=== PATIENT | male | born 1930 ===

== ENCOUNTER 2017-08-23 14:49 | Emergency (ER) | payer MEDICAID, MEDICARE ==
[2017-08-23 14:56] VITALS: BP 178/88; PULSE 80; RESP 16; TEMP 98; O2SAT 96
--- NOTE | 2017-08-23 16:22 | ED PDOC ---
HPI: Male Pain Time Seen by Provider: 08/23/17 15:29 Chief Complaint (Nursing): Male Genitourinary Chief Complaint (Provider): urinary freq History Per: Patient History/Exam Limitations: no limitations Additional Complaint(s): 87yo M in Ed with daughter for eval of frequent urination over 10 years. denies hematuira abdominal pain back pain nausea vomiting fever chills penile drainage numbness/tingling in LE. Pt states he refuses to see his doctor because he doesn't like him. Pt dx with ?prostate inflammation, but pt unsure. last pmd visit 2 years ago. no other complaints. Past Medical History Reviewed: Historical Data, Nursing Documentation, Vital Signs Vital Signs: Last Vital Signs Temp 98.0 F 08/23/17 14:52 Pulse 80 08/23/17 14:52 Resp 16 08/23/17 14:52 BP 178/88 H 08/23/17 14:52 Pulse Ox 96 08/23/17 14:52 - Medical History PMH: HTN - Family History Family History: States: No Known Family Hx - Allergies Allergies/Adverse Reactions: Allergies Allergy/AdvReac Type Severity Reaction Status Date / Time No Known Allergies Allergy Verified 08/23/17 14:52 Review of Systems ROS Statement: Except As Marked, All Systems Reviewed And Found Negative Constitutional: Negative for: Fever, Chills, Malaise Gastrointestinal: Negative for: Nausea, Vomiting, Abdominal Pain, Diarrhea, Constipation Genitourinary Male: Positive for: Frequency. Negative for: Dysuria, Incontinence, Hematuria, Penile Discharge, Scrotal Pain, Rash, Penile Pain Musculoskeletal: Negative for: Back Pain Physical Exam - Reviewed Nursing Documentation Reviewed: Yes Vital Signs Reviewed: Yes - Physical Exam Appears: Positive for: Well, No Acute Distress Head Exam: Positive for: ATRAUMATIC, NORMAL INSPECTION, NORMOCEPHALIC Skin: Positive for: Normal Color, Warm, DRY Eye Exam: Positive for: Normal appearance, EOMI, PERRL Cardiovascular/Chest: Positive for: Regular Rate, Rhythm Respiratory: Positive for: CNT, Normal Breath Sounds Gastrointestinal/Abdominal: Positive for: Normal Exam, Bowel Sounds, Soft. Negative for: Tenderness Back: Positive for: Normal Inspection. Negative for: L CVA Tenderness, R CVA Tenderness Extremity: Positive for: Normal ROM Neurologic/Psych: Positive for: Alert, Oriented - Laboratory Results Urine dip results: Negative for: Leukocyte Esterase, Blood, Nitrate, Ketones, Glucose, Bilirubin, Protein - ECG O2 Sat by Pulse Oximetry: 96 Medical Decision Making Medical Decision Making: PT nontoxic appearing in ER. UDIP unremarkable. normal PE. appointment made for clinic with MD Pamela at 8:30am 09/13/17 Disposition - Clinical Impression Clinical Impression: Urinary frequency - Patient ED Disposition Is Patient to be Admitted: No Counseled Patient/Family Regarding: Need For Followup - Disposition Referrals: [facility] [Outside] Disposition: Routine/Home Disposition Time: 16:35 Condition: STABLE Additional Instructions: You have an appointment at the [facility] (address is listed above) on: 09/13/17 at 8:30am with Dr. Santiago. Instructions: Benign Prostatic Hypertrophy (ED) Print Language: SETSWANA
== END 2017-08-23 16:52 | disposition home or self-care (01) ==
LOC: H.ER 14:49
DX: R39.15 Urgency of urination (principal); N41.9 Inflammatory disease of prostate, unspecified; I10 Essential (primary) hypertension

== ENCOUNTER 2017-11-11 16:07 | Emergency (ER) | payer MEDICAID, MEDICARE ==
[2017-11-11 16:15] VITALS: TEMP 97.4
--- NOTE | 2017-11-11 16:34 | ED PDOC ---
HPI: Altered Mental Status Time Seen by Provider: 11/11/17 16:13 Chief Complaint (Nursing): Altered Mental Status Chief Complaint (Provider): Altered Mental Status History Per: Patient History/Exam Limitations: None Current Symptoms Are (Timing): Still Present Additional Complaint(s): 87 year old male presents to the emergency department via ambulance after they found him wandering the streets prior to arrival. Patient seems to be confused. States he finished visiting his in a hospital in [facility] when he left and crossed the street until he came across a big river. When asked where he lives, patient mentions a address in [facility] but is aware that he is currently in [place], [place]. Denies fever, chills, chest pain, shortness of breath , chest pain, and numbness. Past Medical History Reviewed: Historical Data, Nursing Documentation, Vital Signs Vital Signs: Last Vital Signs Temp 97.4 F L 11/11/17 16:11 Pulse 78 11/11/17 16:11 Resp 20 11/11/17 16:11 BP Pulse Ox 98 11/11/17 16:11 - Medical History PMH: Dementia, HTN - Surgical History Surgical History: No Surg Hx - Family History Family History: States: Unknown Family Hx - Social History Current smoker - smoking cessation education provided: No Alcohol: None Drugs: Denies - Allergies Allergies/Adverse Reactions: Allergies Allergy/AdvReac Type Severity Reaction Status Date / Time No Known Allergies Allergy Verified 11/11/17 16:15 Review of Systems ROS Statement: Except As Marked, All Systems Reviewed And Found Negative (As per HPI, otherwise negative) Constitutional: Negative for: Fever, Chills Cardiovascular: Negative for: Chest Pain Respiratory: Negative for: Shortness of Breath Neurological: Positive for: Confusion. Negative for: Numbness (tingling) Physical Exam - Reviewed Nursing Documentation Reviewed: Yes Vital Signs Reviewed: Yes - Physical Exam Appears: Positive for: No Acute Distress Head Exam: Positive for: ATRAUMATIC, NORMAL INSPECTION Skin: Positive for: Normal Color, Warm, Dry Eye Exam: Positive for: Normal appearance, EOMI, PERRL ENT: Positive for: Normal ENT Inspection. Negative for: Pharyngeal Erythema Cardiovascular/Chest: Positive for: Regular Rate, Rhythm. Negative for: Murmur Respiratory: Positive for: Normal Breath Sounds. Negative for: Accessory Muscle Use, Respiratory Distress Gastrointestinal/Abdominal: Positive for: Normal Exam, Soft. Negative for: Tenderness Extremity: Positive for: Normal ROM. Negative for: Pedal Edema Neurologic/Psych: Positive for: Alert. Negative for: Oriented, Motor/Sensory Deficits, Aphasia - ECG O2 Sat by Pulse Oximetry: 98 (RA) Pulse Ox Interpretation: Normal - Progress ED Course And Treament: 1700: Stable. Alert. Pain free. Spoke with sister. Pt. was with her in hospital and they were visiting another sister. Sister went to get coffee and pt. wandered off. Pt. has hx of wandering. Pt. with no fall. Sister willing to take pt. home. Medical Decision Making Medical Decision Making: Time: 1630 Initial Impression: Possible altered mental status Initial Plan: -- Spoke to patient's sister who stated will be here soon and confirmed that patient has memory issues. Scribe Attestation: Documented by Aliya Taylor, acting as a scribe for Marco A Coy MD. Provider Scribe Attestation: All medical record entries made by the Scribe were at my direction and personally dictated by me. I have reviewed the chart and agree that the record accurately reflects my personal performance of the history, physical exam, medical decision making, and the department course for this patient. I have also personally directed, reviewed, and agree with the discharge instructions and disposition. Disposition - Clinical Impression Clinical Impression: Dementia - Patient ED Disposition Is Patient to be Admitted: No Counseled Patient/Family Regarding: Diagnosis, Need For Followup - Disposition Referrals: [facility] [Outside] - 11/13/17 Disposition: Routine/Home Disposition Time: 17:02 Condition: STABLE Additional Instructions: Return if not better in 3 days. Instructions: Dementia (Including Alzheimer Disease) Print Language: NIGERIAN
[2017-11-11 17:09] VITALS: BP 157/52; PULSE 86; RESP 18; O2SAT 99
== END 2017-11-11 17:17 | disposition home or self-care (01) ==
LOC: H.ER 16:07
DX: F03.90 Unspecified dementia, unspecified severity, without behavioral disturbance, psychotic disturbance, mood disturbance, and anxiety (principal); I10 Essential (primary) hypertension

== ENCOUNTER 2018-08-03 01:57 | Observation (INO) | payer MEDICAID, MEDICARE, OTHER ==
[2018-08-03 02:08] VITALS: BMI 27.4
[2018-08-03 02:55] LABS: BASO # 0.1 K/uL (0.0-0.2); EOS # 0.1 K/uL (0.0-0.7); EOS % 1.8 % (0.0-4.0); HEMOGLOBIN 12.6 g/dL (12.0-18.0); LYMPH # 1.6 K/uL (1.0-4.3); LYMPH % 20.9 % (20.0-40.0); MEAN CORPUSCULAR HGB CONC 33.8 g/dL (33.0-37.0); MEAN PLATELET VOLUME 9.7 fl (7.2-11.7); MONO # 0.7 K/uL (0.0-0.8); MONO % 8.8 % (0.0-10.0); NEUT # 5.1 K/uL (1.8-7.0); NEUT % 67.5 % (50.0-75.0); RBC 4.49 Mil/uL (4.40-5.90); RED CELL DISTRIBUTION WIDTH 14.4 % (11.5-14.5); WHITE BLOOD COUNT 7.5 K/uL (4.8-10.8)
[2018-08-03 03:06] LABS: ALB/GLOB RATIO 1.2 (1.0-2.1); ALBUMIN 3.7 g/dL (3.5-5.0); ALT/SGPT 25 U/L (21-72); AST/SGOT 26 U/L (17-59); BLOOD UREA NITROGEN 17 mg/dl (9-20); CALCIUM 9.1 mg/dL (8.4-10.2); GFR NON-AFRICAN AMERICAN > 60
--- NOTE | 2018-08-03 03:43 | ED PDOC ---
Syncope/Near Syncope/Dizziness Time Seen by Provider: 08/03/18 02:06 Chief Complaint (Nursing): Syncope Chief Complaint (Provider): Syncope History Per: Family (Daughter) History/Exam Limitations: no limitations Additional Complaint(s): 88 y/o male with history of Alzheimer and hypertension brought in by EMS for evaluation of syncopal episodes onset [employer]. Daughter had witnessed the syncopal episode and some seizure type of activity in which patient spoke words while shaking. She reports the episode lasted for 15 minutes and on arrival of EMS, patient was walking and talking normally. Daughter also reports patient's blood pressure dropped base on him becoming pale. Patient is awake and alert in the ED and at a base mentation. Patient denies any chest pain, shortness of breath, headache, nausea, vomiting or postictal phase. PMD: Chuck Simon Past Medical History Reviewed: Historical Data, Nursing Documentation, Vital Signs Vital Signs: Last Vital Signs Temp 98.7 F 08/03/18 02:09 Pulse 70 08/03/18 02:09 Resp 18 08/03/18 02:09 BP 120/80 08/03/18 02:09 Pulse Ox 97 08/03/18 02:09 - Medical History PMH: Alzheimer's Disease, Dementia, HTN, Hyperlipidemia Denies: Chronic Kidney Disease - Surgical History Surgical History: No Surg Hx - Family History Family History: States: Unknown Family Hx - Social History Current smoker - smoking cessation education provided: No Alcohol: None Drugs: Denies - Home Medications Home Medications: Ambulatory Orders Medication Instructions Recorded Atorvastatin [Lipitor] 20 mg PO HS 08/03/18 Lisinopril [Prinivil] 20 mg PO DAILY 08/03/18 Memantine HCl/Donepezil HCl 1 tab PO HS 08/03/18 [Namzaric 28 mg-10 mg Capsule] - Allergies Allergies/Adverse Reactions: Allergies Allergy/AdvReac Type Severity Reaction Status Date / Time No Known Allergies Allergy Verified 08/03/18 02:08 Review of Systems ROS Statement: Except As Marked, All Systems Reviewed And Found Negative Cardiovascular: Negative for: Chest Pain Respiratory: Negative for: Shortness of Breath Gastrointestinal: Negative for: Nausea, Vomiting Neurological: Positive for: Seizures, Other (Syncope). Negative for: Headache Physical Exam - Reviewed Nursing Documentation Reviewed: Yes Vital Signs Reviewed: Yes - Physical Exam Appears: Positive for: Non-toxic, No Acute Distress Head Exam: Positive for: ATRAUMATIC, NORMOCEPHALIC Skin: Positive for: Normal Color, Warm, Dry Eye Exam: Positive for: Normal appearance, EOMI, PERRL Neck: Positive for: Normal, Painless ROM, Supple Cardiovascular/Chest: Positive for: Regular Rate, Rhythm. Negative for: Murmur Respiratory: Positive for: Normal Breath Sounds. Negative for: Respiratory Distress Gastrointestinal/Abdominal: Positive for: Normal Exam, Soft. Negative for: Tenderness Back: Positive for: Normal Inspection. Negative for: L CVA Tenderness, R CVA Tenderness Extremity: Positive for: Normal ROM. Negative for: Pedal Edema, Deformity Neurologic/Psych: Positive for: Alert, Oriented (x3) - Laboratory Results Result Diagrams: 08/03/18 02:52 08/03/18 02:52 - ECG O2 Sat by Pulse Oximetry: 97 (RA) Pulse Ox Interpretation: Normal Medical Decision Making Medical Decision Making: Time: 218 Initial Impression: 88 y/o male s/p syncopal event Initial Plan: --CT Head --Labs 0328 CT Head Findings: COMMENTS: Mild chronic mucosal inflammatory changes of the maxillary sinuses and ethmoid air cells. Air-fluid level in the right maxillary sinus. There is normal configuration of sella turcica. There are no intra or extra-axial collections. There is no mass effect or midline shift. There is no evidence of hematoma formation. No hydrocephalus is present. The ventricles are symmetrical. No abnormal calcifications are present. There is diffuse age-appropriate cerebellar and cerebral atrophy with proportionally dilated ventricles and cortical sulci. There are bilateral periventricular and subcortical white matter hypolucencies compatible with mild chronic microvascular disease. Otherwise, no significant focal abnormalities are seen either in the posterior fossa or supratentorial compartment. IMPRESSION: 1. Age-appropriate cerebellar and cerebral atrophy. 2. Mild chronic microvascular disease. 3. No evidence of acute intracranial pathology. 4. Sinusitis. Acute on top of chronic. 0406 Labs reviewed and show no significant abnormality. Patient is placed on observation status. Case referred to Dr. Cosme covering for Dr. Bennett. Scribe Attestation: Documented by Christina Hong, acting as a scribe for Davino Goldman MD. Provider Scribe Attestation: All medical record entries made by the Scribe were at my direction and personally dictated by me. I have reviewed the chart and agree that the record accurately reflects my personal performance of the history, physical exam, medical decision making, and the department course for this patient. I have also personally directed, reviewed, and agree with the discharge instructions and disposition. Disposition - Clinical Impression Clinical Impression: Syncope - Disposition Disposition Time: 04:06 Condition: FAIR
[2018-08-03] MEDS ORDERED: Potassium Chloride 20 mEq ER Tab PO ONE (09:56)
--- NOTE | 2018-08-03 10:19 | CT ---
Date of service: 08/03/2018 PROCEDURE: CT HEAD WITHOUT CONTRAST. HISTORY: syncope COMPARISON: None available. TECHNIQUE: Axial computed tomography images were obtained through the head/brain without intravenous contrast. Radiation dose: Total exam DLP = 832.89 mGy-cm. This CT exam was performed using one or more of the following dose reduction techniques: Automated exposure control, adjustment of the mA and/or kV according to patient size, and/or use of iterative reconstruction technique. FINDINGS: HEMORRHAGE: No intracranial hemorrhage. BRAIN: No mass effect or edema. Mild diffuse age-appropriate cerebral atrophy. Mild periventricular white matter lucency with white matter lucency also seen in the deep white matter of the right centrum semiovale. Consistent with chronic microvascular ischemic change. No evidence of acute infarct. VENTRICLES: Minimal ventricular dilatation consistent with the degree of surrounding parenchymal volume loss. CALVARIUM: Unremarkable. PARANASAL SINUSES: Chronic ethmoid and right maxillary sinusitis. No evidence of acute sinusitis. MASTOID AIR CELLS: Unremarkable as visualized. No inflammatory changes. OTHER FINDINGS: None. IMPRESSION: No intracranial mass, hemorrhage or evidence of acute infarct. Mild chronic white matter ischemic change. Mild age-appropriate atrophy. Chronic right maxillary sinusitis and ethmoid sinusitis. The preliminary findings for this examination were reported by [facility] at 3:28 a.m. on 08/03/2018. There is concurrence of this report with the preliminary findings.
--- NOTE | 2018-08-03 13:06 | CP.PCM.CON ---
History of Present Illness - History of Present Illness History of Present Illness: Neurology Consultation Note: Mr. Lily Lee is an 88-year-old man with a past medical history of Alzheimer's disease, who was witnessed by his daughter to have an episode of LOC along with shaking and subsequent confusion. He was brought to the ED, where he was back to his baseline. The episode lasted about 15 minutes. Review of Systems - Review of Systems Systems not reviewed;Unavailable: Altered Mental Status Past Patient History - Past Social History Alcohol: None Drugs: Denies - CARDIAC Hx Hypertension: Yes - PULMONARY Hx Respiratory Disorders: No - NEUROLOGICAL Hx Alzheimer's Disease: Yes Hx Dementia: Yes - HEENT Hx HEENT Problems: No - RENAL Hx Chronic Kidney Disease: No - ENDOCRINE/METABOLIC Hx Endocrine Disorders: No - HEMATOLOGICAL/ONCOLOGICAL Hx Blood Disorders: No - INTEGUMENTARY Hx Dermatological Problems: No - MUSCULOSKELETAL/RHEUMATOLOGICAL Hx Musculoskeletal Disorders: No - GASTROINTESTINAL Hx Gastrointestinal Disorders: No - GENITOURINARY/GYNECOLOGICAL Hx Genitourinary Disorders: No - PSYCHIATRIC Hx Psychophysiologic Disorder: No Hx Substance Use: No - SURGICAL HISTORY Hx Surgeries: No - ANESTHESIA Hx Anesthesia: No Meds Allergies/Adverse Reactions: Allergies Allergy/AdvReac Type Severity Reaction Status Date / Time No Known Allergies Allergy Verified 08/03/18 02:08 - Medications Medications: Current Medications Enoxaparin Sodium (Lovenox) 40 mg SC DAILY OBEY; Protocol Physical Exam - Constitutional Appears: Well - Head Exam Head Exam: ATRAUMATIC, NORMAL INSPECTION, NORMOCEPHALIC - Eye Exam Eye Exam: EOMI, Normal appearance, PERRL Pupil Exam: NORMAL ACCOMODATION, PERRL - ENT Exam ENT Exam: Mucous Membranes Moist, Normal Exam - Neck Exam Neck exam: Positive for: Normal Inspection - Respiratory Exam Respiratory Exam: Clear to Auscultation Bilateral, NORMAL BREATHING PATTERN - Cardiovascular Exam Cardiovascular Exam: REGULAR RHYTHM, +S1, +S2 - GI/Abdominal Exam GI & Abdominal Exam: Normal Bowel Sounds, Soft. absent: Tenderness - Rectal Exam Rectal Exam: Deferred - Extremities Exam Extremities exam: Positive for: normal inspection - Back Exam Back exam: NORMAL INSPECTION - Neurological Exam Neurological exam: Altered, CN II-XII Intact, Normal Gait, Oriented x3, Reflexes Normal - Psychiatric Exam Psychiatric exam: Normal Affect, Normal Mood - Skin Skin Exam: Dry, Intact, Normal Color, Warm Results - Vital Signs Recent Vital Signs: Last Vital Signs Temp 97.9 F 08/03/18 08:37 Pulse 81 08/03/18 08:37 Resp 20 08/03/18 08:37 BP 98/58 L 08/03/18 08:37 Pulse Ox 98 08/03/18 08:37 - Labs Result Diagrams: 08/03/18 02:52 08/03/18 02:52 Labs: Laboratory Results - last 24 hr 08/03/18 08/03/18 08/03/18 02:11 02:52 02:52 WBC 7.5 RBC 4.49 Hgb 12.6 Hct 37.2 MCV 83.0 MCH 28.0 MCHC 33.8 RDW 14.4 Plt Count 190 MPV 9.7 Neut % (Auto) 67.5 Lymph % (Auto) 20.9 Ritchie % (Auto) 8.8 Eos % (Auto) 1.8 Baso % (Auto) 1.0 Neut # (Auto) 5.1 Lymph # (Auto) 1.6 Ritchie # (Auto) 0.7 Eos # (Auto) 0.1 Baso # (Auto) 0.1 Sodium 138 Potassium 3.3 L Chloride 102 Carbon Dioxide 25 Anion Gap 14 BUN 17 Creatinine 0.7 L Est GFR ( Amer) > 60 Est GFR (Non-Af Amer) > 60 POC Glucose (mg/dL) 176 H Random Glucose 136 H Calcium 9.1 Total Bilirubin 0.2 AST 26 ALT 25 Alkaline Phosphatase 96 Troponin I < 0.0120 Total Protein 6.8 Albumin 3.7 Globulin 3.1 Albumin/Globulin Ratio 1.2 Assessment & Plan (1) Seizure Assessment and Plan: Based on the history provided, the patient may have had a seizure-like episode. I recommend starting Keppra 500 mg BID and obtaining an EEG for one hour. An MRI of the brain without contrast is also recommended. MRA of the head/neck may also be obtained to rule out any carotid disease or vertebrobasilar insufficiency. Thank you for this consultation. Status: Acute
[2018-08-03] MEDS: Enoxaparin 40 mg Syringe SC SCH (14:27)
--- NOTE | 2018-08-03 14:34 | CP.PCM.HP ---
History of Present Illness - History of Present Illness History of Present Illness: CC: Seizure. 88 y/o M, PMHx Alzheimers, Dementia, HTN, Hyperlipidemia, brought to ER [facility] [place], via EMS on 08/03/18, to be evaluated for syncopal episode and associated seizure activity/shaking, mumble words, episode was witnessed by daughter and lasted about 15 minutes. Daughter gave him Aspirin and when EMS arrived, Pt was walking/talking in his base line. Worsening symptom: LOC. Low BP while at home( as per daughter). Aggravated factor: Poor historian. No: Fever, chills, CP, numbness, SOB, cough, abdominal pain, n/v/d, urinary symptoms, sick contact. Head CT: No intracranial mass, hemorrhage or infarct, mild age related changes. Present on Admission - Present on Admission Any Indicators Present on Admission: No Review of Systems - Review of Systems Systems not reviewed;Unavailable: Acuity of Condition, Dementia Past Patient History - Past Medical History & Family History Pertinent Family History: Unknown - Past Social History Smoking Status: Never Smoked Alcohol: None Drugs: Denies Home Situation {Lives}: Alone - CARDIAC Hx Cardiac Disorders: Yes Hx Hypertension: Yes - PULMONARY Hx Respiratory Disorders: No - NEUROLOGICAL Hx Neurological Disorder: Yes Hx Alzheimer's Disease: Yes Hx Dementia: Yes - HEENT Hx HEENT Problems: No - RENAL Hx Chronic Kidney Disease: No - ENDOCRINE/METABOLIC Hx Endocrine Disorders: No - HEMATOLOGICAL/ONCOLOGICAL Hx Blood Disorders: No - INTEGUMENTARY Hx Dermatological Problems: No - MUSCULOSKELETAL/RHEUMATOLOGICAL Hx Musculoskeletal Disorders: No - GASTROINTESTINAL Hx Gastrointestinal Disorders: No - GENITOURINARY/GYNECOLOGICAL Hx Genitourinary Disorders: No - PSYCHIATRIC Hx Psychophysiologic Disorder: No Hx Substance Use: No - SURGICAL HISTORY Hx Surgeries: No - ANESTHESIA Hx Anesthesia: No Meds Allergies/Adverse Reactions: Allergies Allergy/AdvReac Type Severity Reaction Status Date / Time No Known Allergies Allergy Verified 08/03/18 02:08 Physical Exam - Constitutional Appears: No Acute Distress - Head Exam Head Exam: NORMAL INSPECTION - Eye Exam Eye Exam: PERRL - ENT Exam ENT Exam: Normal Exam - Neck Exam Neck exam: Positive for: Normal Inspection - Respiratory Exam Respiratory Exam: Clear to Auscultation Bilateral - Cardiovascular Exam Cardiovascular Exam: REGULAR RHYTHM - GI/Abdominal Exam GI & Abdominal Exam: Normal Bowel Sounds, Soft - Extremities Exam Extremities exam: Positive for: normal inspection - Back Exam Back exam: NORMAL INSPECTION - Neurological Exam Additional comments: Awake, forgetful, confused, follows simple commands. - Psychiatric Exam Psychiatric exam: Normal Mood - Skin Skin Exam: Warm Results - Vital Signs Recent Vital Signs: Last Vital Signs Temp 97.9 F 08/03/18 08:37 Pulse 81 08/03/18 08:37 Resp 20 08/03/18 08:37 BP 98/58 L 08/03/18 08:37 Pulse Ox 98 08/03/18 08:37 reviewed Elvie - Labs Result Diagrams: 08/03/18 02:52 08/03/18 02:52 Labs: Laboratory Results - last 24 hr 08/03/18 08/03/18 08/03/18 02:11 02:52 02:52 WBC 7.5 RBC 4.49 Hgb 12.6 Hct 37.2 MCV 83.0 MCH 28.0 MCHC 33.8 RDW 14.4 Plt Count 190 MPV 9.7 Neut % (Auto) 67.5 Lymph % (Auto) 20.9 Converse % (Auto) 8.8 Eos % (Auto) 1.8 Baso % (Auto) 1.0 Neut # (Auto) 5.1 Lymph # (Auto) 1.6 [place] # (Auto) 0.7 Eos # (Auto) 0.1 Baso # (Auto) 0.1 Sodium 138 Potassium 3.3 L Chloride 102 Carbon Dioxide 25 Anion Gap 14 BUN 17 Creatinine 0.7 L Est GFR ( Amer) > 60 Est GFR (Non-Af Amer) > 60 POC Glucose (mg/dL) 176 H Random Glucose 136 H Calcium 9.1 Total Bilirubin 0.2 AST 26 ALT 25 Alkaline Phosphatase 96 Troponin I < 0.0120 Total Protein 6.8 Albumin 3.7 Globulin 3.1 Albumin/Globulin Ratio 1.2 reviewed J.PWill - Imaging and Cardiology CT scan - head Status: Report reviewed by me (Elvie) Assessment & Plan (1) Seizure Status: Acute Priority: High (2) Syncope Status: Acute Priority: High (3) Dementia Status: Chronic Priority: High (4) Hyperglycemia Status: Acute Priority: High (5) HTN (hypertension) Status: Chronic Priority: Medium (6) Hyperlipidemia Status: Chronic Priority: Low - Assessment and Plan (Free Text) Plan: F/U EKG, Echo, Brain MRI, Hgb A1C. Continue Keppra, Lovenox, Lipitor and rest of Tx, OT, PT eval. Neurology consult appreciated. - Date & Time Date: 08/03/18 Time: 13:30
[2018-08-03] MEDS ORDERED: Pneumococcal 23-Valent Vaccine IM ONE (16:18)
[2018-08-03] MEDS ORDERED: Influenza Vaccine (5 YR UP)/PF 60 MCG/0.5 ML SYR IM ONE (16:28)
--- NOTE | 2018-08-03 17:15 | CARD ---
APPROVED REPORT Date of service: 08/03/2018 EXAM: Two-dimensional and M-mode echocardiogram with Doppler and color Doppler. Other Information Quality : FairRhythm : NSR Technically limited study due to Poor Echo Window INDICATION Syncope 2D DIMENSIONS IVSd0.91 (0.7-1.1cm)LVDd3.45 (3.9-5.9cm) LVOT Diameter2.67 (1.8-2.4cm)PWd0.92 (0.7-1.1cm) IVSs1.54 (0.8-1.2cm)LVDs1.28 (2.5-4.0cm) FS (%) 62.9 %PWs1.19 (0.8-1.2cm) Aortic Valve AoV Peak Xeywmtsk280.4cm/sAoV VTI20.7cmAO Peak GR.5mmHg LVOT Peak Yvcnmeuj023.3cm/sLVOT VTI15.66cmAO Mean GR.3mmHg OLIVA (VMAX)2.69gs5KJF (VTI)2.32cm2 Mitral Valve MV E Vqcvkato25.5cm/sMV DECEL [id number] A Svcnziia03.7cm/s MV QRQ205yuH/A ratio0.5MVA (PHT)1.65cm2 TDI Lateral E' Peak V9.78cm/sMedial E' Peak V4.56cm/sE/Lateral E'4.6 E/Medial E'9.8 LEFT VENTRICLE The left ventricle is normal size. There is normal left ventricular wall thickness. The left ventricular systolic function is normal. The estimated ejection fraction is 55-60% No regional wall motion abnormalities noted.. Transmitral Doppler flow pattern is Grade I-abnormal relaxation pattern. No left ventricle thrombus noted on this study. There is no left ventricular aneurysm. RIGHT VENTRICLE The right ventricle is normal size. There is normal right ventricular wall thickness. The right ventricular systolic function is normal. ATRIA The left atrium size is normal. The right atrium size is normal. AORTIC VALVE The aortic valve is normal in structure. Mild aortic regurgitation is present. There is no aortic valvular stenosis. There is no aortic valvular vegetation. MITRAL VALVE The mitral valve is normal in structure. There is no evidence of mitral valve prolapse. There is no mitral valve stenosis. There is no mitral valve regurgitation noted. TRICUSPID VALVE The tricuspid valve is normal in structure. There is no tricuspid valve regurgitation noted. There is no tricuspid valve prolapse or vegetation. There is no tricuspid valve stenosis. PULMONIC VALVE The pulmonary valve is normal in structure. There is no pulmonic valvular regurgitation. There is no pulmonic valvular stenosis. GREAT VESSELS The aortic root is normal in size. The ascending aorta is normal in size. The pulmonary artery is normal. The IVC is normal in size and collapses >50% with inspiration. PERICARDIAL EFFUSION There is no pericardial effusion. There is no pleural effusion. <Conclusion> Technically difficult study The estimated ejection fraction is 55-60% Transmitral Doppler flow pattern is Grade I-abnormal relaxation pattern. The left atrium size is normal. Mild aortic regurgitation is present. There is no tricuspid valve regurgitation noted.
--- NOTE | 2018-08-03 17:17 | US ---
Date of service: 08/03/2018 PROCEDURE: Bilateral duplex Doppler carotid arterial ultrasound examination HISTORY: syncope COMPARISON: Not available TECHNIQUE: Examination was performed utilizing a linear array color Doppler transducer. FINDINGS: RIGHT CAROTID ARTERY: Intimal thickening noted in the distal common carotid artery. Moderate atheromatous plaque in the carotid bulb. Peak systolic velocity measurements: CCA: 71.6 centimeters/second ICA: 52.0 centimeters/second ICA/CCA peak systolic velocity ratio: 0.7 Antegrade flow demonstrated in the right vertebral artery LEFT CAROTID ARTERY: Intimal thickening noted in the distal common carotid artery. Calcified atheromatous plaque in the carotid bulb extending into the ECA and ICA proximally. Peak systolic velocity measurements: CCA: 80.6 centimeters/second ICA: 74.1 centimeters/second ICA/CCA peak systolic velocity ratio: 0.9 Antegrade flow demonstrated in the left vertebral artery Incidental finding: Heterogeneous right lobe of thyroid. Correlate with thyroid ultrasound examination. IMPRESSION: No evidence of hemodynamically significant carotid arterial stenosis bilaterally (16-49 percent by NASCET criteria). Incidental finding of heterogeneous right lobe of thyroid. Correlate with thyroid ultrasound examination in consideration of possible thyroid mass.
--- NOTE | 2018-08-03 18:04 | CARD ---
APPROVED REPORT Date of service: 08/03/2018 EKG Measurement Heart [id number] IN 124P19 [id number] <Conclusion> Normal sinus rhythm T wave abnormality, consider anterolateral ischemia Abnormal ECG
[2018-08-03] MEDS: MEMANTINE HCL PO SCH (22:08)
[2018-08-03] MEDS: DONEPEZIL HCL PO SCH (22:08)
[2018-08-04] MEDS: Enoxaparin 40 mg Syringe SC SCH (08:16)
--- NOTE | 2018-08-04 14:43 | CP.PCM.PN ---
Subjective - Date & Time of Evaluation Date of Evaluation: 08/04/18 Time of Evaluation: 14:00 - Subjective Subjective: Patient seen and examined. Denied any complaint. Objective - Vital Signs/Intake and Output Vital Signs (last 24 hours): Temp Pulse Resp BP Pulse Ox 97.9 F 79 20 116/71 95 08/04/18 12:00 08/04/18 12:00 08/04/18 12:00 08/04/18 12:00 08/04/18 12:00 - Medications Medications: Current Medications Atorvastatin Calcium (Lipitor) 20 mg PO [facility] Last Admin: 08/03/18 22:11 Dose: 20 mg Enoxaparin Sodium (Lovenox) 40 mg SC DAILY [facility]; Protocol Last Admin: 08/04/18 08:16 Dose: 40 mg Home Med (Memantine Hcl/Donepezil Hcl [Namzaric 28 Mg-10 Mg Capsule]) 1 tab PO [facility] Last Admin: 08/03/18 22:08 Dose: 1 tab Levetiracetam (Keppra) 500 mg PO BID [facility] Last Admin: 08/04/18 08:16 Dose: 500 mg - Labs Labs: 08/03/18 02:52 08/03/18 02:52 - Constitutional Appears: No Acute Distress - Head Exam Head Exam: ATRAUMATIC - Eye Exam Eye Exam: absent: Scleral icterus - ENT Exam ENT Exam: Mucous Membranes Moist - Neck Exam Neck Exam: absent: Meningismus - Respiratory Exam Respiratory Exam: absent: Rales, Rhonchi, Wheezes, Respiratory Distress - Cardiovascular Exam Cardiovascular Exam: REGULAR RHYTHM, +S1, +S2 - GI/Abdominal Exam GI & Abdominal Exam: Soft. absent: Tenderness - Rectal Exam Rectal Exam: Deferred - Neurological Exam Neurological Exam: Alert, Oriented x3 - Psychiatric Exam Psychiatric exam: Normal Affect - Skin Skin Exam: Dry, Intact Assessment and Plan - Assessment and Plan (Free Text) Assessment: 88 yo male with history of HTN and Alzheimer brought by EMS after daughter witnessed him unresponsive for about 15 minutes with some jerky movements while sitting on a chair at home. BP was also noted to be low by daughter. There was no involuntary micturition or post ictal confusion. 1. Seizure seizure probably secondary to sudden dropped in BP?? awaiting result of MRI and EEG Dr Gibbs on consult continue Keppra 500mg PO BID Troponin and ECHO negative for possible ischemia but EKG showed t wave inversion on anterolateral leads repeat Troponin 2. Alzheimer Dementia continue Memantine 3. DVT prophylaxis on Lovenox 40mg SC daily
--- NOTE | 2018-08-04 18:34 | MRI ---
Date of service: 08/03/2018 PROCEDURE: MRI BRAIN WITHOUT CONTRAST HISTORY: syncope COMPARISON: Comparison made with prior CT scan of the brain dated 08/03/2018. TECHNIQUE: Multiplanar, multisequence MR images of the brain were obtained without intravenous contrast enhancement. FINDINGS: HEMORRHAGE: No acute parenchymal, subarachnoid nor extra-axial hemorrhage. No evidence of hemosiderin deposition is identified on gradient echo weighted sequence. DWI: No evidence of an acute or early subacute infarction seen on diffusion imaging.. BRAIN PARENCHYMA: Mild moderate diffuse/confluent chronic periventricular white matter ischemic changes seen extending peripherally into the deep and subcortical regions of both cerebral hemispheres. Moderate to significant generalized volume loss. No obvious parenchymal nor extra-axial masses or collections seen on this noncontrast exam VENTRICLES: Dilatation 3rd and lateral ventricles likely due to central volume loss. CRANIUM: Unremarkable. ORBITS: Changes right sided cataract surgery again noted.. PARANASAL SINUSES/MASTOIDS: . There is mild mucosal thickening right maxillary antrum with minimal mucosal thickening left maxillary antrum. Minimal mucosal thickening also noted within a few ethmoid air cells. VASCULAR SYSTEM: Visualized major vascular flow voids at skull base patent.. OTHER FINDINGS: None. IMPRESSION: No evidence of acute intracranial hemorrhage or infarction. Mild to moderate chronic white matter ischemic changes. Moderate to significant generalized volume loss
[2018-08-04] MEDS: DONEPEZIL HCL PO SCH (21:16)
[2018-08-04] MEDS: MEMANTINE HCL PO SCH (21:16)
[2018-08-05 04:44] VITALS: RESP 18
[2018-08-05] MEDS: Enoxaparin 40 mg Syringe SC SCH (08:22)
[2018-08-05 08:38] VITALS: BP 159/71; PULSE 71; TEMP 97.4; O2SAT 97
--- NOTE | 2018-08-05 09:58 | CP.PCM.DIS ---
Provider - Provider Date of Admission: 08/03/18 03:57 Attending physician: Ryan Cosme MD Consults: 08/03/18 09:57 Neurology Consult Routine Comment: Consulting Provider: Garrick Gibbs Consulting Physician: Garrick Gibbs Reason for Consult: syncopal episode, hx of alzheimers 08/03/18 16:18 Case Management Referral Routine Comment: Physician Instructions: Reason For Exam: Reason for Referral: Discharge Planning Time Spent in preparation of Discharge (in minutes): 25 Diagnosis - Discharge Diagnosis (1) Syncope Status: Acute Priority: High Comment: syncope probably secondary to drop in BP. work ups were negative for seizure activity. will reduce Lisinopril from 20mg to 10mg daily (2) HTN (hypertension) Status: Chronic Priority: Medium Comment: BP stable. will reduce Lisinopril to 10mg PO daily (3) Dementia Status: Chronic Priority: High Comment: continue Memantine Hospital Course - Lab Results Lab Results: Most Recent Lab Values WBC 7.5 K/uL (4.8-10.8) 08/03/18 02:52 RBC 4.49 Mil/uL (4.40-5.90) 08/03/18 02:52 Hgb 12.6 g/dL (12.0-18.0) 08/03/18 02:52 Hct 37.2 % (35.0-51.0) 08/03/18 02:52 MCV 83.0 fl (80.0-94.0) 08/03/18 02:52 MCH 28.0 pg (27.0-31.0) 08/03/18 02:52 MCHC 33.8 g/dL (33.0-37.0) 08/03/18 02:52 RDW 14.4 % (11.5-14.5) 08/03/18 02:52 Plt Count 190 K/uL (130-400) 08/03/18 02:52 MPV 9.7 fl (7.2-11.7) 08/03/18 02:52 Neut % (Auto) 67.5 % (50.0-75.0) 08/03/18 02:52 Lymph % (Auto) 20.9 % (20.0-40.0) 08/03/18 02:52 [place] % (Auto) 8.8 % (0.0-10.0) 08/03/18 02:52 Eos % (Auto) 1.8 % (0.0-4.0) 08/03/18 02:52 Baso % (Auto) 1.0 % (0.0-2.0) 08/03/18 02:52 Neut # (Auto) 5.1 K/uL (1.8-7.0) 08/03/18 02:52 Lymph # (Auto) 1.6 K/uL (1.0-4.3) 08/03/18 02:52 [place] # (Auto) 0.7 K/uL (0.0-0.8) 08/03/18 02:52 Eos # (Auto) 0.1 K/uL (0.0-0.7) 08/03/18 02:52 Baso # (Auto) 0.1 K/uL (0.0-0.2) 08/03/18 02:52 Sodium 138 mmol/l (132-148) 08/03/18 02:52 Potassium 3.3 MMOL/L (3.6-5.0) L 08/03/18 02:52 Chloride 102 mmol/L (98-107) 08/03/18 02:52 Carbon Dioxide 25 mmol/L (22-30) 08/03/18 02:52 Anion Gap 14 (10-20) 08/03/18 02:52 BUN 17 mg/dl (9-20) 08/03/18 02:52 Creatinine 0.7 mg/dl (0.8-1.5) L 08/03/18 02:52 Est GFR ( Amer) > 60 08/03/18 02:52 Est GFR (Non-Af Amer) > 60 08/03/18 02:52 POC Glucose (mg/dL) 176 mg/dL (65-110) H 08/03/18 02:11 Random Glucose 136 mg/dL (75-110) H 08/03/18 02:52 Hemoglobin A1c 6.2 % (4.2-6.5) 08/04/18 05:50 Calcium 9.1 mg/dL (8.4-10.2) 08/03/18 02:52 Total Bilirubin 0.2 mg/dl (0.2-1.3) 08/03/18 02:52 AST 26 U/L (17-59) 08/03/18 02:52 ALT 25 U/L (21-72) 08/03/18 02:52 Alkaline Phosphatase 96 U/L (38-126) 08/03/18 02:52 Troponin I < 0.0120 ng/mL (0.00-0.120) 08/04/18 15:29 Total Protein 6.8 G/DL (6.3-8.2) 08/03/18 02:52 Albumin 3.7 g/dL (3.5-5.0) 08/03/18 02:52 Globulin 3.1 gm/dL (2.2-3.9) 08/03/18 02:52 Albumin/Globulin Ratio 1.2 (1.0-2.1) 08/03/18 02:52 - Hospital Course Hospital Course: 88 yo male with history of HTN and Alzheimer brought by EMS after daughter witnessed him unresponsive for about 15 minutes with some jerky movements while sitting on a chair at home. BP was also noted to be low by daughter. There was no involuntary micturition or post ictal confusion. MRI and EEG did not show any abnormalities. Dr Gibbs, neuro consult, agreed patient could be discharged. Discharge Exam - Head Exam Head Exam: ATRAUMATIC - Eye Exam Eye Exam: absent: Scleral icterus - ENT Exam ENT Exam: Mucous Membranes Moist - Respiratory Exam Respiratory Exam: absent: Rales, Rhonchi, Wheezes, Respiratory Distress - Cardiovascular Exam Cardiovascular Exam: REGULAR RHYTHM, +S1, +S2 - GI/Abdominal Exam GI & Abdominal Exam: Soft. absent: Tenderness - Rectal Exam Rectal Exam: Deferred - Neurological Exam Neurological exam: Alert, Oriented x3 - Psychiatric Exam Psychiatric exam: Normal Affect - Skin Skin Exam: Dry, Intact Discharge Plan - Follow Up Plan Condition: FAIR Disposition: HOME/ ROUTINE
--- NOTE | 2018-08-06 12:35 | PCM.EEG ---
Electroencephalogram Report - Electroencephalogram Report Procedure Date: 08/04/18 Medication: Non listed Interpretation: Technical Information: This was a 16 -channel EEG, 1-channel EKG routine EEG performed using an [employer] machine. Electrodes were applied using the 10/20 international placement system. Start; 11;49 End; 12;45 Total; 1hour 20 min. Clinical Information: syncope Results; During resting wakefulness there was a symmetric posterior dominant rhythm at 8.5- Hz, 30-50 uV, which was reactive to eye opening and closing. Drowsiness seen at 12;03, was associated with fragmentation of the posterior dominant rhythm and with slow roving eye movements. Light sleep seen at 12;40 was recorded and was characterized by central sleep spindles, and bilateral theta slowing. Hyperventilation was not performed. Photic stimulation was performed and there were no changes on the record. Focal abnormality; none ECG was associated with a normal sinus rhythm. I Impression: This is a normal awake drowsy and sleep electroencephalogram.
== END 2018-08-05 11:04 | disposition home or self-care (01) ==
LOC: H.ER 01:57 → H.ERHOLD 03:57 → H.TEL 06:26
PROVIDERS: ADMIT Internal Medicine Pulmonary Disease; ATTEND Internal Medicine Pulmonary Disease
DX: R55 Syncope and collapse (principal); F02.80 Dementia in other diseases classified elsewhere, unspecified severity, without behavioral disturbance, psychotic disturbance, mood disturbance, and anxiety; G30.9 Alzheimer's disease, unspecified; I10 Essential (primary) hypertension; Z79.899 Other long term (current) drug therapy; E78.5 Hyperlipidemia, unspecified; Z23 Encounter for immunization
CPT/HCPCS: 36415; 70450; 70551; 80053; 82948; 83036; 84484; 85025; 90471; 90732; 93005; 93306; 93880; 99284; G0378; J1630; J1650; Q2035